=== PATIENT | female | born 1940 | race African-American/Black ===

== ENCOUNTER 2023-12-22 05:22 | Day surgery (SDC) | payer OTHER ==
[2023-12-20 12:24] VITALS: BMI 27.5
[2023-12-22] MEDS ORDERED: ACETAMINOPHEN 500 MG TABLET (FP) PO PRN (09:39)
[2023-12-22] MEDS ORDERED: DEXAMETHASONE SOD PHOSPHATE 10 MG/1 ML VIAL ONE (10:41)
[2023-12-22] MEDS: IOHEXOL 180 MG/1 ML ML IJ ONE ×2 (10:59)
[2023-12-22] MEDS: LIDOCAINE HCL 1% PRESERVATIVE FREE - 30ML VIAL IJ ONE ×3 (10:59)
[2023-12-22] MEDS: DEXAMETHASONE SOD PHOSPHATE 10 MG/1 ML VIAL IVPUSH ONE ×2 (10:59)
[2023-12-22 14:06] VITALS: BP 150/89; PULSE 68; RESP 18; TEMP 98.1
== END 2023-12-22 11:49 | disposition home or self-care (01) ==
LOC: JASU-SURG 05:22
PROVIDERS: ATTEND Pain Medicine Pain Medicine
PROC: 3E0R3BZ Introduction of Anesthetic Agent into Spinal Canal, Percutaneous Approach (ICD-10-PCS; 2023-12-22)
PROC: 3E0R33Z Introduction of Anti-inflammatory into Spinal Canal, Percutaneous Approach (ICD-10-PCS; principal; 2023-12-22 10:15)
DX: M48.061 Spinal stenosis, lumbar region without neurogenic claudication (principal); M54.16 Radiculopathy, lumbar region
CPT/HCPCS: 76000-TC-FY; J1100

== ENCOUNTER 2024-02-23 04:13 | Day surgery (SDC) | payer OTHER ==
[2024-02-21 12:04] VITALS: BMI 27.5
[2024-02-23] MEDS ORDERED: LIDOCAINE HCL/PF 1% SDV 5ML VIAL ONE (07:13)
[2024-02-23] MEDS ORDERED: DEXAMETHASONE SOD PHOSPHATE 10 MG/1 ML VIAL ONE (07:13)
[2024-02-23] MEDS ORDERED: ACETAMINOPHEN 500 MG TABLET (FP) PO PRN (08:27)
[2024-02-23 08:30] VITALS: RESP 20
[2024-02-23] MEDS: IOHEXOL 180 MG/1 ML ML IJ ONE (09:43)
[2024-02-23] MEDS: DEXAMETHASONE SOD PHOSPHATE 10 MG/1 ML VIAL IVPUSH ONE (09:43)
[2024-02-23] MEDS: LIDOCAINE HCL 1% PRESERVATIVE FREE - 30ML VIAL IJ ONE (09:43)
[2024-02-23 15:58] VITALS: BP 137/76; PULSE 65; TEMP 97.5
== END 2024-02-23 10:35 | disposition home or self-care (01) ==
LOC: JASU-SURG 04:13
PROVIDERS: ATTEND Pain Medicine Pain Medicine
PROC: 3E0R3BZ Introduction of Anesthetic Agent into Spinal Canal, Percutaneous Approach (ICD-10-PCS; 2024-02-23)
PROC: 3E0R33Z Introduction of Anti-inflammatory into Spinal Canal, Percutaneous Approach (ICD-10-PCS; principal; 2024-02-23 09:45)
DX: M48.061 Spinal stenosis, lumbar region without neurogenic claudication (principal)
CPT/HCPCS: 76000-TC-FY; J1100